=== PATIENT | female | born 1995 | race African-American/Black ===

== ENCOUNTER → 2018-10-12 | Outpatient (CLI) | payer SELFPAY ==
--- NOTE | 2018-10-12 14:09 | RADIOLOGY REPORT (SQ) ---
EXAM DESCRIPTION: U/S OB 14+ TRNABD 1GES W/O DOP COMPLETED DATE/TIME: 10/12/2018 1:56 pm REASON FOR STUDY: Z34.81 ENCOUNTER FOR SUPRVSN OF NORMAL , FIRST TRIMESTER Z34.81 ENCOUNTE R FOR SUPRVSN OF NORMAL , FIRST TRIM COMPARISON: None. TECHNIQUE: Static and Dynamic grayscale imaging performed of gravid uterus using transabdominal appr oach. Additional selected color Doppler and spectral images recorded. All stored on PACS. LIMITATIONS: None. FINDINGS: FETUSES SEEN:1 EGA: 26 weeks 5 days Calculated using BPD,FL,HC,AC documented on images. No discrepancy with clinica l dates. ANTOINE: 01/13/2019 EFW: 958 grams PERCENTILE: 49 KATHIE: Adequate amount. PLACENTA: Anterior. GRADE: I PRESENTATION: Cephalic. ANATOMY: HEART RATE: 143 beats per minute. FOUR CHAMBER HEART: Visualized. THREE VESSEL CORD: Yes. CORD INSERTION: Visualized. KIDNEYS AND BLADDER: Visualized. Appear normal. STOMACH: Visualized. Appears normal. SPINE: Normal as visualized. BRAIN AND LATERAL VENTRICLES: Visualized. Appear normal. OTHER: No other significant finding. MATERNAL ADNEXA: Maternal ovaries not visualized. CERVICAL LENGTH: 3.9 cm. Closed. OTHER: No other significant finding. IMPRESSION: LIVING INTRAUTERINE . ESTIMATED GESTATIONAL AGE 26 weeks 5 days NO VISUALIZED ANOMALIES. Trimester of : Second trimester - 13 weeks 1 day to 27 weeks 6 days. TECHNICAL DOCUMENTATION: JOB ID: [id number] [employer]- All Rights Reserved Reading location - IP/workstation name: [email or web address]
== END ==
LOC: RAD 12:43
PROVIDERS: ATTEND Midwife
DX: Z34.82 Encounter for supervision of other normal pregnancy, second trimester (principal)
CPT/HCPCS: 76805

== ENCOUNTER 2019-01-09 12:23 | Outpatient (CLI) | payer MEDICAID ==
[2019-01-09 13:04] LABS: APPEARANCE,URINE SLIGHTLY-CLOUDY; BILIRUBIN,URINE NEGATIVE (NEGATIVE); COLOR,URINE AMBER; GLUCOSE, URINE NEGATIVE (NEGATIVE); KETONES,URINE NEGATIVE (NEGATIVE); LEUKOCYTE ESTERASE,URINE SMALL (NEGATIVE); NITRITE,URINE NEGATIVE (NEGATIVE); PROTEIN,URINE NEGATIVE (NEGATIVE); URINE SPECIFIC GRAVITY 1.024; UROBILINOGEN,URINE NEGATIVE mg/dL (<2.0)
[2019-01-09 13:17] LABS: URINE CREATININE 204.1 mg/dL (16-327); URINE PROTEIN 6.9 mg/dL (<12)
[2019-01-09 13:19] LABS: URINE AMPHETAMINES SCREEN NEGATIVE; URINE BARBITURATES SCREEN NEGATIVE; URINE BENZODIAZEPINES SCREEN NEGATIVE; URINE COCAINE SCREEN NEGATIVE; URINE MARIJUANA (THC) SCREEN NEGATIVE; URINE METHADONE SCREEN NEGATIVE; URINE PHENCYCLIDINE SCREEN NEGATIVE
[2019-01-09 13:49] LABS: ABSOLUTE LYMPHOCYTES (AUTO) 1.1 10^3/uL (0.5-4.7); ABSOLUTE MONOCYTES (AUTO) 0.7 10^3/uL (0.1-1.4); ABSOLUTE NEUT (AUTO) 6.3 10^3/uL (1.7-8.2); BASOPHILS % (AUTO) 0.2 % (0-2); EOSINOPHILS % (AUTO) 0.6 % (0-6); HEMATOCRIT 37.2 % (36.0-47.0); HEMOGLOBIN 12.4 g/dL (12.0-15.5); LYMPHOCYTES % (AUTO) 13.8 % (13-45); MEAN CORPUSCULAR HEMOGLOBIN 30.5 pg (27.0-33.4); MEAN CORPUSCULAR HGB CONC 33.4 g/dL (32.0-36.0); MEAN CORPUSCULAR VOLUME 91 fl (80-97); MONOCYTES % (AUTO) 8.3 % (3-13); PLATELET COUNT 175 10^3/uL (150-450); RED BLOOD COUNT 4.07 10^6/uL (3.72-5.28); RED CELL DISTRIBUTION WIDTH 15.1 % (11.5-14.0); SEGMENTED NEUTROPHILS % (AUTO) 77.1 % (42-78); TOTAL CELLS COUNTED % (AUTO) 100 %; WHITE BLOOD COUNT 8.1 10^3/uL (4.0-10.5)
[2019-01-09 14:14] LABS: ALBUMIN 2.7 g/dL (3.5-5.0); ALKALINE PHOSPHATASE 99 U/L (38-126); ANION GAP 5 (5-19); ASPARTATE AMINO TRANSFERASE 24 U/L (14-36); BILIRUBIN,DIRECT 0.2 mg/dL (0.0-0.4); BILIRUBIN,TOTAL 0.4 mg/dL (0.2-1.3); BLOOD UREA NITROGEN 10 mg/dL (7-20); CALCIUM 9.3 mg/dL (8.4-10.2); CARBON DIOXIDE 23 mmol/L (22-30); CHLORIDE 107 mmol/L (98-107); GLUCOSE 75 mg/dL (75-110); POTASSIUM 4.3 mmol/L (3.6-5.0); TOTAL PROTEIN 5.6 g/dL (6.3-8.2); URIC ACID 5.2 mg/dL (2.5-6.2)
== END 2019-01-09 14:35 | disposition home or self-care (01) ==
LOC: LC 12:23
PROVIDERS: ATTEND Obstetrics & Gynecology
PROC: 4A1HXCZ Monitoring of Products of Conception, Cardiac Rate, External Approach (ICD-10-PCS; principal; 2019-01-09)
DX: O16.3 Unspecified maternal hypertension, third trimester (principal); Z3A.39 39 weeks gestation of pregnancy
CPT/HCPCS: 36415; 59025; 80053; 80307; 81001; 82570; 83615; 84156; 84550; 85025

== ENCOUNTER 2019-01-12 18:17 | Inpatient (IN) | payer MEDICAID ==
[2019-01-12] MEDS ORDERED: RINGERS SOLUTION,LACTATED 300 ML IV ONE (18:45)
[2019-01-12] MEDS ORDERED: OXYTOCIN/NORMAL SALINE 20 UNIT/1,000 ML RTUINJ IV PRN ×3 (18:45→23:43)
[2019-01-12] MEDS ORDERED: PENICILLIN G POTASSIUM 5,000,000 UNIT in DEXTROSE 5%-WATER 100 ML IV ONE (18:49)
[2019-01-12 19:11] LABS: APPEARANCE,URINE SLIGHTLY-CLOUDY; BILIRUBIN,URINE NEGATIVE (NEGATIVE); COLOR,URINE AMBER; GLUCOSE, URINE NEGATIVE (NEGATIVE); KETONES,URINE NEGATIVE (NEGATIVE); LEUKOCYTE ESTERASE,URINE NEGATIVE (NEGATIVE); NITRITE,URINE NEGATIVE (NEGATIVE); PROTEIN,URINE 30 mg/dL (NEGATIVE); URINE SPECIFIC GRAVITY 1.026; UROBILINOGEN,URINE NEGATIVE mg/dL (<2.0)
[2019-01-12 19:29] LABS: URINE AMPHETAMINES SCREEN NEGATIVE; URINE BARBITURATES SCREEN NEGATIVE; URINE BENZODIAZEPINES SCREEN NEGATIVE; URINE COCAINE SCREEN NEGATIVE; URINE MARIJUANA (THC) SCREEN NEGATIVE; URINE METHADONE SCREEN NEGATIVE; URINE PHENCYCLIDINE SCREEN NEGATIVE
[2019-01-12 19:33] LABS: URINE CREATININE 235.8 mg/dL (16-327); URINE PROTEIN 9.3 mg/dL (<12)
[2019-01-12 19:41] LABS: ABSOLUTE LYMPHOCYTES (AUTO) 1.1 10^3/uL (0.5-4.7); ABSOLUTE MONOCYTES (AUTO) 0.6 10^3/uL (0.1-1.4); ABSOLUTE NEUT (AUTO) 8.1 10^3/uL (1.7-8.2); BASOPHILS % (AUTO) 0.3 % (0-2); EOSINOPHILS % (AUTO) 0.3 % (0-6); HEMATOCRIT 38.3 % (36.0-47.0); HEMOGLOBIN 12.9 g/dL (12.0-15.5); LYMPHOCYTES % (AUTO) 11.3 % (13-45); MEAN CORPUSCULAR HEMOGLOBIN 30.3 pg (27.0-33.4); MEAN CORPUSCULAR HGB CONC 33.5 g/dL (32.0-36.0); MEAN CORPUSCULAR VOLUME 90 fl (80-97); MONOCYTES % (AUTO) 6.3 % (3-13); PLATELET COUNT 197 10^3/uL (150-450); RED BLOOD COUNT 4.25 10^6/uL (3.72-5.28); RED CELL DISTRIBUTION WIDTH 14.6 % (11.5-14.0); SEGMENTED NEUTROPHILS % (AUTO) 81.8 % (42-78); TOTAL CELLS COUNTED % (AUTO) 100 %; WHITE BLOOD COUNT 9.9 10^3/uL (4.0-10.5)
[2019-01-12 20:00] LABS: ALKALINE PHOSPHATASE 115 U/L (38-126); ANION GAP 8 (5-19); ASPARTATE AMINO TRANSFERASE 27 U/L (14-36); BILIRUBIN,DIRECT 0.1 mg/dL (0.0-0.4); BILIRUBIN,TOTAL 0.3 mg/dL (0.2-1.3); BLOOD UREA NITROGEN 14 mg/dL (7-20); CALCIUM 9.2 mg/dL (8.4-10.2); CARBON DIOXIDE 20 mmol/L (22-30); CHLORIDE 106 mmol/L (98-107); GLUCOSE 85 mg/dL (75-110); POTASSIUM 4.4 mmol/L (3.6-5.0); TOTAL PROTEIN 5.7 g/dL (6.3-8.2); URIC ACID 5.2 mg/dL (2.5-6.2)
[2019-01-12] MEDS: RINGERS SOLUTION,LACTATED 1,000 ML IV PRN (20:30)
[2019-01-12] MEDS ORDERED: PENICILLIN G-K 5 MILLION UNIT VIAL ONE ×2 (21:21→21:25)
[2019-01-12] MEDS ORDERED: METOPROLOL SUCCINATE 50 MG TAB.SR.24H PO ONE (21:28)
--- NOTE | 2019-01-12 21:30 | Admission Physical ---
Datetime Report Generated by CPN: 01/12/2019 21:30 CURRENT ADMISSION Chief Complaint Other: Gestational HTN Indication for Induction: Gestational HTN Admit Impression : Term, Intrauterine ; Induction of Labor Admit Plan: Admit to Unit; Initiate Labor Induction Protocol ALLERGIES Medication Allergies: No Medication Allergies: No Known Allergies (01/09/2019) Latex: No Latex Allergies OBSTETRICAL HISTORY EDC: 01/15/2019 00:00 : 3 Para: 2 Livin Gestational Diabetes: No Rh Sensitization: No Incompetent Cervix: No MIKAYLA: No Infertility: No ART Treatment: No Uterine Anomaly: No IUGR: No Hx Previous C/S: Yes Macrosomia: No Hx Loss/Stillborn: No PIH: Yes Hx : No Placenta Previa/Abruption: No Depression/PP Depression: No PTL/PROM: No Post Hemorrhage: No Current Procedures: Ultrasound; NST Obstetrical History Comments: G1- 40.6 - G2- 39.5- vaginal G3- Current - POTS, GHTN SEE RECORDS Alcohol: No Marijuana : No Cocaine: No Other Illicit Drugs: No Cigarettes: Never Smoker. 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 Surgery: No Heart Disease: No Hosp/Surgery: Yes Autoimmune Disorder: No Anesthetic Complications: No Kidney Disease: No Abnormal Pap Smear: Yes Neuro/Epilepsy: No Psychiatric Disorders: No Other Medical Diseases: No Hepatitis/Liver Disease: No Significant Family History: No Varicosities/Phlebitis: No Trauma/Violence : No Thyroid Dysfunction: No Medical History Comments: hx of c/s and abnormal pap smear- 5 years ago anemia POTS INFECTIOUS HISTORY Gonorrhea: No Genital Herpes: No Chlamydia: No Tuberculosis: No Syphilis: No Hepatitis: No HIV/AIDS Exposure: No Rash or Viral Illness: No HPV: No PHYSICAL EXAM General: Normal HEENT: Normal Neurologic: Normal Thyroid: Normal Heart: Normal Lungs: Normal Breast: Normal Back: Normal Abdomen: Normal Genitourinary Exam: Normal Extremities: Normal DTRs: Normal Pelvic Type: Adequate Vital Signs: Reviewed Details Vital Signs: elevated VAGINAL EXAM Dilatation: 1 Effacement: 50% Station: -3 Contraction Comments: rare MEMBRANES Membranes: Intact FETUS A Monitoring: External US FHR- Baseline: 160s Variability: Moderate 6-25bpm Accelerations: 15X15 Decelerations: None FHR Category: Category I Admit Comment: presents to L_D for an NST sec to GHTN. Her BP was elevated in the office around 1500 and she was arrived at L_D at 2000. She wants a LESLY and her cervix is 1/50%/-3. I decided to keep her for an induction since she is term. I placed a ferrell bulb into her cervix and her membranes ruptured. She is GBS Positive. I will start her PCN now. Her BP is ranging 150-170/80-90s. PLANS FOR LABOR AND DELIVERY Labor and Delivery: None; Plan Pain Management: Medications Feeding Preference: Breast Benefit of Breast Feed Discussed: Yes Circumcision: Yes INFORMED CONSENT Signature: with User ID: [email or web address]
[2019-01-12] MEDS ORDERED: OXYTOCIN 10 UNIT/ML VIAL ONE (22:30)
[2019-01-12] MEDS ORDERED: LIDOCAINE 1% INJ-PF (10 MG/ML) 30 ML SDV ONE (22:30)
[2019-01-12] MEDS ORDERED: MISOPROSTOL 0.2 MG TABLET ONE (22:30)
[2019-01-12] MEDS ORDERED: OXYTOCIN/NORMAL SALINE 20 UNIT/1,000 ML RTUINJ ONE (22:30)
[2019-01-12] MEDS ORDERED: NIFEDIPINE 30 MG TAB.ER.24 PO ONE ×2 (23:28→23:59)
[2019-01-12] MEDS ORDERED: DIPH/PERTUSS(ACELL)/TETANUS VAC/PF 0.5 ML SYR (>=10YO) IM PRN (23:43)
[2019-01-12] MEDS ORDERED: ZOLPIDEM TARTRATE 5 MG TABLET PO PRN (23:43)
[2019-01-12] MEDS ORDERED: ACETAMINOPHEN WITH CODEINE #3 TABLET PO PRN ×2 (23:43)
[2019-01-12] MEDS ORDERED: MEASLES,MUMPS&RUBELLA VACC/PF 0.5 ML VIAL SUBCUT PRN (23:43)
[2019-01-12] MEDS ORDERED: DIBUCAINE 1% OINTMENT 56 GM TP PRN (23:43)
[2019-01-12] MEDS ORDERED: BENZOCAINE/MENTHOL AEROSOL SPRAY 56 ML TOP PRN (23:43)
[2019-01-13] MEDS ORDERED: HYDRALAZINE HCL INJ/PF 20 MG/1 ML SDV ONE (00:11)
[2019-01-13] MEDS ORDERED: NALBUPHINE HCL INJ 10 MG/1 ML AMPULE ONE (00:24)
[2019-01-13] MEDS ORDERED: PROMETHAZINE HCL INJ 25 MG/1 ML VIAL ONE (00:24)
[2019-01-13] MEDS ORDERED: HYDRALAZINE HCL INJ/PF 20 MG/1 ML SDV IV ONE (00:30)
[2019-01-13] MEDS ORDERED: PENICILLIN G-K 5 MILLION UNIT VIAL ONE (01:12)
[2019-01-13] MEDS: PENICILLIN G POTASSIUM 2,500,000 UNIT in DEXTROSE 5%-WATER 50 ML IV SCH ×2 (01:27→06:29)
[2019-01-13] MEDS ORDERED: EPHEDRINE SULFATE INJ 50 MG/1 ML AMPULE ONE (01:40)
[2019-01-13] MEDS ORDERED: FENTANYL/BUPIVACAINE/NS/PF 300 MCG/150 ML RTUINJ EPI ONE (01:41)
[2019-01-13] MEDS ORDERED: BUPIVACAINE HCL 0.25 % INJ/PF (2.5 MG/1 ML) 30 ML VIAL ONE (01:41)
[2019-01-13] MEDS: RINGERS SOLUTION,LACTATED 1,000 ML IV PRN (02:45)
[2019-01-13] MEDS ORDERED: IBUPROFEN 800 MG TABLET ONE (06:38)
[2019-01-13] MEDS: IBUPROFEN 800 MG TABLET PO SCH ×3 (06:44→22:27)
--- NOTE | 2019-01-13 06:59 | Delivery Summary ---
Del Sum A-C Datetime Report Generated by CPN: 01/13/2019 06:59 DELIVERY PERSONNEL DELIVERY PERSONNEL: [id number] Delivery Doctor:: Shefali Lozada MD Labor and Delivery Nurse:: Karuna Izquierdo RNsouvenir assembler Nurse:: Analia Perez RN Nursery Nurse:: Rosalba Mckay RN Nursery Nurse:: Patito Hinton RN Tablet Making Machine Operator Helper/STERILE PROCESSING TECHNICIAN: Jacqueline Fuentes, ST MATERNAL INFORMATION Delivery Anesthesia: Epidural Medications After Delivery: Pitocin Drip 20 Units/1000ml NSS Estimated Blood Loss (ml): 100 Delivery QBL: 100 Maternal Complications: None Complication Details: GHTN, Provider Comments: of a viable male at 0459 w/an OA w/nuchal cord x 1 presentation; APGARS 6, 9; wt 5# 13 oz; 1st deg left periurethral lac LABOR SUMMARY EDC: 01/15/2019 00:00 No. Babies in Womb: 1 Attempted: Yes Labor Anesthesia: Epidural LABOR INFORMATION Reason for Induction: Gestational Hypertension Onset of Labor: 01/13/2019 00:25 Complete Dilatation: 01/13/2019 04:50 Cervical Ripening Agents: Montes Balloon Oxytocin: Augmentation Group B Beta Strep: POSITIVE Antibiotics # of Doses: 2 Antibiotics Time of Last Dose: 132 Name of Antibiotic Given: PCN Steroids Given: None Reason Steroids Not Administered: Not Applicable MEMBRANES Membranes Rupture Method: Artificial Rupture of Membranes: 01/12/2019 21:20 Length of Rupture (hr): 7.65 Amniotic Fluid Color: Clear Amniotic Fluid Amount: Copious Amniotic Fluid Odor: Normal STAGES OF LABOR Stage 1 hr: 4 Stage 1 min: 25 Stage 2 hr: 0 Stage 2 min: 9 Stage 3 hr: 0 Stage 3 min: 5 Total Time in Labor hr: 4 Total Time in Labor min: 39 VAGINAL DELIVERY Episiotomy: None Laceration #1: Periurethral Laceration Extension #1: First Degree Laceration Repair: Yes Laceration Repair Note: 3-0 vicryl used for repair Sponge Count Correct: Yes Sharps Count Correct: Yes CSECTION DELIVERY Primary Indication: N/A Secondary Indication: N/A CSection Incidence: N/A Labor: N/A Elective: N/A CSection Incision: N/A Uterine Closure: Double-layer closure BABY A INFORMATION Delivery Date/Time: 01/13/2019 04:59 Method of Delivery: Vaginal Born in Route : No : Successful Forceps: N/A Vacuum Extraction: N/A Shoulder Dystocia : No PRESENTATION/POSITION BABY A Presentation: Cephalic Cephalic Presentation: Vertex Vertex Position: OA Breech Presentation: N/A PLACENTA INFORMATION BABY A Placenta Delivery Time : 01/13/2019 05:04 Placenta Method of Delivery: Spontaneous Placenta Status: Delivered SCORES BABY A Heart Rate 1 min: >100 bpm Resp Effort 1 min: Good Cry Reflex Irritability 1 min: Grimace Muscle Tone 1 min: Some Flexion of Extremities Color 1 min: Blue/Pale Resuscitation Effort 1 min: Tactile Stimulation SCORE 1 MIN: 6 Heart Rate 5 min: >100 bpm Resp Effort 5 min: Good Cry Reflex Irritability 5 min: Cough or Sneeze or Pulls Away Muscle Tone 5 min: Active Motion Color 5 min: Body Ferdinand, Extremities Blue Resuscitation Effort 5 min: Tactile Stimulation SCORE 5 MIN: 9 INFORMATION BABY A Gestational Age at Delivery: 39.5 Gestational Status: Full Term- 39- 40.6 Weeks Infant Outcome : Liveborn Condition : Stable Sex: Male IDENTIFICATION BABY A Verification Date/Time: 01/13/2019 05:07 ID Band Number: [id number] RN Verifying : B. Ring _ K. Robin WEIGHT/LENGTH BABY A Birthweight (gm): 2640 Infant Weight (lb): 5 Infant Weight (oz): 13 Infant Length (in): 18.25 Length (cm): 46.36 CORD INFORMATION BABY A No. Cord Vessels: 3 Nuchal Cord : Around Neck x1, Loose Cord Blood Taken: Yes-For Storage (Mom's Blood type +) Suction: Mouth ASSESSMENT BABY A Complications: Multiple Variable Decels Physical Findings at Delivery: Within Normal Limits Physical Findings- Other: see intial nursery assessment Infant Respirations: Appears Normal Skin to Skin: Yes Skin to Skin Time (min): 60 Hat Block Bench Hand/ALS Called : No Infant Care By: Jose Mckay RN Transferred To: Remains with Mother BABY B INFORMATION : N/A SIGNATURES Signature: with User ID: [email or web address]
[2019-01-13 07:58] LABS: HEMATOCRIT 39.5 % (36.0-47.0); MEAN CORPUSCULAR HEMOGLOBIN 30.3 pg (27.0-33.4); MEAN CORPUSCULAR VOLUME 92 fl (80-97); PLATELET COUNT 191 10^3/uL (150-450); RED CELL DISTRIBUTION WIDTH 15.2 % (11.5-14.0); WHITE BLOOD COUNT 16.2 10^3/uL (4.0-10.5)
[2019-01-13] MEDS: NIFEDIPINE 30 MG TAB.ER.24 PO SCH (10:42)
[2019-01-13] MEDS: PRENATAL VITAMIN W DHA CAPSULE PO SCH (10:43)
[2019-01-13] MEDS: SENNOSIDES/DOCUSATE 8.6-50 MG 1 EACH TABLET PO SCH (10:43)
[2019-01-13] MEDS: DOCUSATE SODIUM 100 MG CAPSULE PO SCH ×2 (10:43→18:50)
[2019-01-13] MEDS: FERROUS SULFATE 325 MG TABLET PO SCH ×2 (10:43→18:51)
[2019-01-14] MEDS: IBUPROFEN 800 MG TABLET PO SCH ×3 (06:14→22:00)
[2019-01-14] MEDS: PRENATAL VITAMIN W DHA CAPSULE PO SCH (09:17)
[2019-01-14] MEDS: FERROUS SULFATE 325 MG TABLET PO SCH ×2 (09:17→17:48)
[2019-01-14] MEDS: SENNOSIDES/DOCUSATE 8.6-50 MG 1 EACH TABLET PO SCH (09:17)
[2019-01-14] MEDS: NIFEDIPINE 30 MG TAB.ER.24 PO SCH (09:18)
[2019-01-14] MEDS: DOCUSATE SODIUM 100 MG CAPSULE PO SCH ×2 (09:18→17:48)
--- NOTE | 2019-01-14 11:43 | PDOC PROGRESS REPORT ---
Subjective-OB Progress Note for:: 01/14/19 Subjective: Pt doing well, no concerns. She reports light bleeding, reg diet and is voiding without difficulty. Physical Exam (OB) Vital Signs: Temp Pulse Resp BP Pulse Ox 98.3 F 90 18 128/87 H 99 01/14/19 09:13 01/14/19 09:13 01/14/19 09:13 01/14/19 09:13 01/14/19 09:13 Intake & Output 01/13/19 01/14/19 01/15/19 06:59 06:59 06:59 Intake Total 781 300 240 Balance 781 300 240 Weight 116.7 kg - General General Appearance: Appears well In distress: None - Lochia Lochia Amount: Small 10-25 ml Lochia Color: Rubra/Red - Abdomen Description: Soft Hernia Present: No Fundal Description: Firm, Midline Fundal Height: u/u - u/2 Objective-Diagnostic Laboratory: 01/13/19 07:29 01/12/19 19:27 Assessment and Plan(PN) - Assessment and Plan (1) Gestational hypertension Qualifiers: Trimester: third trimester Qualified Code(s): O13.3 - Gestational [-induced] hypertension without significant proteinuria, third trimester Is this a current diagnosis for this admission?: Yes (2) , delivered Is this a current diagnosis for this admission?: Yes (3) Vaginal delivery Is this a current diagnosis for this admission?: Yes - Time Spent with Patient Time with patient: Less than 15 minutes Medications reviewed and adjusted accordingly: Yes - Disposition Anticipated Discharge: Home Within: within 24 hours
[2019-01-15] MEDS: IBUPROFEN 800 MG TABLET PO SCH ×3 (05:24→22:18)
--- NOTE | 2019-01-15 09:40 | PDOC DISCHARGE SUMMARY ---
Final Diagnosis Discharge Date: 01/15/19 - PP Day #2, doing well, O+, Rubella Immune, Hx GHTN and POTS, deneis headache, x2 - Final Diagnosis (1) Normal course Is this a current diagnosis for this admission?: Yes (2) Gestational hypertension Is this a current diagnosis for this admission?: Yes (3) , delivered Is this a current diagnosis for this admission?: Yes (4) Vaginal delivery Is this a current diagnosis for this admission?: Yes Discharge Data - Discharge Medication Prescriptions: Ibuprofen [Motrin 800 mg Tablet] 800 mg PO Q8 #60 tablet Nifedipine [Procardia XL 30 mg Tablet] 30 mg PO DAILY #30 tab.er.24 Home Medications: Metoprolol Succinate [Kapspargo Sprinkle] 50 mg PO DAILY 01/09/19 Pantoprazole Sodium [Protonix [address] Tablet] 40 mg PO DAILY 01/09/19 95/Iron Fum/Folic/Dha [ + Dha Combo Pack] 1 cap PO DAILY 01/09/19 Ibuprofen [Motrin 800 mg Tablet] 800 mg PO Q8 #60 tablet 01/15/19 Nifedipine [Procardia XL 30 mg Tablet] 30 mg PO DAILY #30 tab.er.24 01/15/19 Reason(s) for Admission: Induction of Labor, PIH Procedures: Ultrasound, Management of Obstetric Complications Intrapartum Procedure(s): Spontaneous Vaginal Delivery Complication(s): Laceration-Perineal Laceration-Degree: 1st - Diagnosis Test Laboratory: Temp Pulse Resp BP Pulse Ox 98.4 F 93 18 145/104 H 100 01/15/19 07:37 01/15/19 07:37 01/15/19 07:37 01/15/19 07:37 01/15/19 07:37 01/12/19 01/12/19 01/13/19 18:33 19:27 07:29 RBC 4.25 4.30 Hgb 12.9 13.0 Hct 38.3 39.5 Urine Opiates Screen NEGATIVE - Discharge information/Instructions Discharge Activity: Activity As Tolerated, No Lifting Over 10 Pounds, Pelvic Rest Discharge Diet: As Tolerated, Regular Disposition: HOME, SELF-CARE Follow up with: [facility] in: 1, Weeks - for a BP check
[2019-01-15] MEDS: DOCUSATE SODIUM 100 MG CAPSULE PO SCH ×2 (11:24→17:21)
[2019-01-15] MEDS: PRENATAL VITAMIN W DHA CAPSULE PO SCH (11:24)
[2019-01-15] MEDS: NIFEDIPINE 30 MG TAB.ER.24 PO SCH (11:25)
[2019-01-15] MEDS: SENNOSIDES/DOCUSATE 8.6-50 MG 1 EACH TABLET PO SCH (11:25)
[2019-01-15] MEDS: FERROUS SULFATE 325 MG TABLET PO SCH ×2 (11:26→17:21)
[2019-01-15 22:00] VITALS: BP 148/87
== END 2019-01-15 22:56 | disposition home or self-care (01) | DRG 807 ==
LOC: LR 18:17 → 2S 01-13 08:36
PROVIDERS: ADMIT Obstetrics & Gynecology; ATTEND Obstetrics & Gynecology
PROC: 10907ZC Drainage of Amniotic Fluid, Therapeutic from Products of Conception, Via Natural or Artificial Opening (ICD-10-PCS; 2019-01-12)
PROC: 10E0XZZ Delivery of Products of Conception, External Approach (ICD-10-PCS; principal; 2019-01-13)
PROC: 0UQMXZZ Repair Vulva, External Approach (ICD-10-PCS; 2019-01-13)
DX: O13.4 Gestational [pregnancy-induced] hypertension without significant proteinuria, complicating childbirth (principal); Z37.0 Single live birth; O34.219 Maternal care for unspecified type scar from previous cesarean delivery; O76 Abnormality in fetal heart rate and rhythm complicating labor and delivery; O69.81X0 Labor and delivery complicated by cord around neck, without compression, not applicable or unspecified; O71.82 Other specified trauma to perineum and vulva; O99.824 Streptococcus B carrier state complicating childbirth; Z3A.35 35 weeks gestation of pregnancy
CPT/HCPCS: 36415; 80053; 80307; 81001; 82570; 83615; 84156; 84550; 85025; 85027; 86592; 86850; 86900; 86901; 88307; 94760; C1758; J0360; J2300; J2540; J2550; J2590; J3010; J3490